=== PATIENT | male | born 1985 | race African-American/Black ===

== ENCOUNTER 2017-11-27 09:51 | Inpatient (IN) | payer OTHER ==
[~2017-11-27] VITALS: Ht 193 cm; Wt 164.2 kg
[~2017-11-27 09:51] MED LIST: ASPIR-LOW81 MG PO; AUGMENTIN PO; CARDIZEM CD120 MG PO; DIOVAN HCT 31 TABLE1 PO; FISH OIL 1,0001 EAC7 PO; GABAPENTIN400 MG PO; HYDROCHLOROTHIA25 MG PO; LISINOPRIL-HCT1 EAC3 PO; LOPRESSOR50 MG PO; NEURONTIN800 MG PO; NICOTINE PATCH1 EAC2 TD; OXYCODONE HCL10 MG PO; OXYMORPHONE HCL20 MG PO; PERCOCET 5/31 TABLET PO; VALSARTAN160 MG PO; ZESTORETIC 10-1 EAC1 PO; ZESTORETIC 20-1 EAC2 PO; ZESTRIL10 MG PO
[2017-11-27 10:13] LABS: BASOPHIL (%) 0.6 % (0-1); BASOPHIL COUNT 0.1 K/uL (0-0.1); EOSINOPHIL (%) 3.1 % (0-5); EOSINOPHIL COUNT 0.3 K/uL (0-0.3); HEMATOCRIT 42.8 % (38.0-50.0); HEMOGLOBIN 13.9 G/DL (12.5-16.6); IMMATURE GRANULOCYTE (%) 0.2 % (0.0-0.7); LYMPHOCYTE (%) 30.9 % (15-42); LYMPHOCYTE COUNT 2.7 K/uL (1.0-2.8); MCH 25.1 PG (29.0-34.0); MCHC 32.5 G/DL (30.0-36.0); MCV 77.4 FL (86-99); MONOCYTE (%) 4.6 % (3-12); MONOCYTE COUNT 0.4 K/uL (0-0.8); NEUTROPHIL (%) 60.6 % (45-76); NEUTROPHIL COUNT 5.3 K/uL (1.8-6.4); PLATELET COUNT 274 K/uL (156-360); RBC DIS.WIDTH-CV 15.8 % (11.8-14.6); RED BLOOD COUNT 5.53 M/uL (4.00-5.50); WHITE BLOOD COUNT 8.8 K/uL (4.1-10.2)
[2017-11-27 10:21] LABS: PTT 33.1 SEC (25-37)
[2017-11-27 10:34] LABS: CHLORIDE 104 mEq/L (99-109); POTASSIUM 3.8 mEq/L (3.7-5.4); SODIUM 138 mEq/L (136-147); TROP-I INTERPRETATION NEGATIVE
[2017-11-27 10:35] LABS: GLUCOSE 135 mg/dL (70-99)
[2017-11-27 10:39] LABS: CREATININE 0.7 mg/dL (0.6-1.3); GFR ESTIMATE (CALCULATED) > 59 mL/min/ (58.99-99999)
[2017-11-27 10:40] LABS: UREA NITROGEN (BUN) 11 mg/dL (9-23)
[2017-11-27] MEDS ORDERED: DILTIAZEM 24HR120 MG PO (13:04)
[2017-11-27] MEDS ORDERED: METOPROLOL TART50 MG PO (13:04)
[2017-11-27] MEDS ORDERED: VALSARTAN-HCTZ1 EAC3 PO (13:07)
[2017-11-27] MEDS ORDERED: GABAPENTIN400 MG PO (13:07)
[2017-11-27 16:34] LABS: TROP-I INTERPRETATION POSITIVE; TROPONIN-I 0.74 ng/mL (0.0-0.30)
[2017-11-27 17:02] LABS: INTER. NORMALIZED RATIO 1.1
[2017-11-27 17:05] LABS: PTT 33.1 SEC (25-37)
[2017-11-27 18:34] VITALS: BP 140/69
[2017-11-27 19:20] VITALS: BP 148/76
[2017-11-27 22:20] LABS: TROP-I INTERPRETATION POSITIVE; TROPONIN-I 0.62 ng/mL (0.0-0.30)
[2017-11-27 22:30] VITALS: BP 167/82
[2017-11-28 03:30] VITALS: BP 143/80
[2017-11-28 08:03] LABS: HEMATOCRIT 42.8 % (38.0-50.0); HEMOGLOBIN 13.3 G/DL (12.5-16.6); MCHC 31.1 G/DL (30.0-36.0); MCV 80.3 FL (86-99); PLATELET COUNT 274 K/uL (156-360); RBC DIS.WIDTH-CV 16.4 % (11.8-14.6); RBC DIS.WIDTH-SD 47.2 % (39-53); RED BLOOD COUNT 5.33 M/uL (4.00-5.50); WHITE BLOOD COUNT 10.2 K/uL (4.1-10.2)
[2017-11-28 08:08] LABS: CHLORIDE 105 MEQ/L (99-109); POTASSIUM 3.9 MEQ/L (3.7-5.4); SODIUM 139 MEQ/L (136-147)
[2017-11-28 08:14] LABS: CREATININE 0.4 MG/DL (0.6-1.3); GFR ESTIMATE (CALCULATED) > 59 mL/min/ (58.99-99999); GLUCOSE 108 mg/dL (70-99); UREA NITROGEN (BUN) 11 mg/dL (9-23)
[2017-11-28 08:34] LABS: TROP-I INTERPRETATION INDETERMINATE; TROPONIN-I 0.33 ng/mL (0.0-0.30)
[2017-11-28 09:00] VITALS: BP 161/102
[2017-11-28 11:48] VITALS: BP 164/95
[2017-11-28] MEDS ORDERED: METOPROLOL SUC100 MG PO (12:55)
[2017-11-28] MEDS ORDERED: XARELTO20 MG PO (12:55)
[2017-11-28] MEDS ORDERED: KLONOPIN0.5 M1 PO (14:59)
== END 2017-11-28 16:20 | disposition home or self-care (01) | DRG 281 ==
LOC: EME 09:51 → EDOF 11:54 → ENRESERV 11:57 → CANRESERV 11:57 → ENRESERV 12:41 → EDOF 16:42 → 4EAST 16:42 → EDOF 16:42 → 4EAST 18:31
PROVIDERS: Emergency Medicine; Internal Medicine
DX: I48.0 Paroxysmal atrial fibrillation (principal); I21.4 Non-ST elevation (NSTEMI) myocardial infarction; I47.1 Supraventricular tachycardia; E78.5 Hyperlipidemia, unspecified; G62.9 Polyneuropathy, unspecified; I10 Essential (primary) hypertension; G47.33 Obstructive sleep apnea (adult) (pediatric); E66.01 Morbid (severe) obesity due to excess calories; F41.9 Anxiety disorder, unspecified; F17.210 Nicotine dependence, cigarettes, uncomplicated; I25.2 Old myocardial infarction; Z91.19 Patient's noncompliance with other medical treatment and regimen; Z68.41 Body mass index [BMI] 40.0-44.9, adult
CPT/HCPCS: 71045; 80048; 84443; 84484; 85025; 85027; 85610; 85730; 93005; 93306; J7050

== ENCOUNTER 2018-02-05 23:09 | Inpatient (IN) | payer OTHER ==
[~2018-02-05] VITALS: Ht 193 cm; Wt 150.8 kg
[~2018-02-05 23:09] MED LIST changes: +DILTIAZEM 24HR120 MG PO; +KLONOPIN0.5 M1 PO; +METOPROLOL SUC100 MG PO; +METOPROLOL TART50 MG PO; +VALSARTAN-HCTZ1 EAC3 PO; +XARELTO20 MG PO
[2018-02-05 23:29] LABS: BASOPHIL (%) 0.5 % (0-1); BASOPHIL COUNT 0.1 K/uL (0-0.1); EOSINOPHIL COUNT 0.5 K/uL (0-0.3); HEMATOCRIT 44.9 % (38.0-50.0); HEMOGLOBIN 14.4 G/DL (12.5-16.6); IMMATURE GRANULOCYTE (%) 0.2 % (0.0-0.7); LYMPHOCYTE (%) 46.6 % (15-42); LYMPHOCYTE COUNT 5.2 K/uL (1.0-2.8); MCH 25.5 PG (29.0-34.0); MCHC 32.1 G/DL (30.0-36.0); MCV 79.5 FL (86-99); MONOCYTE (%) 7.4 % (3-12); MONOCYTE COUNT 0.8 K/uL (0-0.8); NEUTROPHIL (%) 41.3 % (45-76); NEUTROPHIL COUNT 4.6 K/uL (1.8-6.4); PLATELET COUNT 307 K/uL (156-360); RBC DIS.WIDTH-CV 15.9 % (11.8-14.6); RBC DIS.WIDTH-SD 45.4 % (39-53); RED BLOOD COUNT 5.65 M/uL (4.00-5.50); WHITE BLOOD COUNT 11.1 K/uL (4.1-10.2)
[2018-02-05 23:41] LABS: CHLORIDE 102 mEq/L (99-109); POTASSIUM 3.2 mEq/L (3.7-5.4); PTT 32.6 SEC (25-37); SODIUM 140 mEq/L (136-147)
[2018-02-05 23:42] LABS: MAGNESIUM 2.1 mg/dL (1.3-2.7)
[2018-02-05 23:43] LABS: GLUCOSE 98 mg/dL (70-99)
[2018-02-05 23:47] LABS: CREATININE 0.7 mg/dL (0.6-1.3); GFR ESTIMATE (CALCULATED) > 59 mL/min/ (58.99-99999)
[2018-02-05 23:48] LABS: UREA NITROGEN (BUN) 8 mg/dL (9-23)
[2018-02-05 23:52] LABS: TROP-I INTERPRETATION NEGATIVE; TROPONIN-I < 0.01 ng/mL (0.0-0.30)
[2018-02-06] VITALS (14 sets, daily range): BP systolic 97–165; BP diastolic 55–119
[2018-02-06 01:11] LABS: AMPHETAMINE NEGATIVE (500 ng/mL); BARBITURATES NEGATIVE (200 ng/mL); BENZODIAZEPINES NEGATIVE (150 ng/mL); BUPRENORPHINE NEGATIVE (10 ng/mL); COCAINE PRESUMPTIVE POSITIVE (150 ng/mL); METHADONE NEGATIVE (200 ng/mL); METHAMPHETAMINE NEGATIVE (500 ng/mL); OPIATES (MORPHINE) NEGATIVE (100 ng/mL); OXYCODONE NEGATIVE (100 ng/mL); PHENCYCLIDINE NEGATIVE (25 ng/mL); PROPOXYPHENE NEGATIVE (300 ng/mL); THC CANNABINOIDS PRESUMPTIVE POSITIVE (50 ng/mL); TRICYCLIC ANTIDEPRESSANTS NEGATIVE (300 ng/mL)
[2018-02-06] MEDS ORDERED: METOPROLOL TART50 MG PO (01:12)
[2018-02-06 06:19] LABS: BASOPHIL (%) 0.5 % (0-1); EOSINOPHIL COUNT 0.3 K/uL (0-0.3); HEMATOCRIT 39.9 % (38.0-50.0); HEMOGLOBIN 12.5 G/DL (12.5-16.6); IMMATURE GRANULOCYTE (%) 0.2 % (0.0-0.7); LYMPHOCYTE (%) 36.2 % (15-42); LYMPHOCYTE COUNT 3.2 K/uL (1.0-2.8); MCH 25.6 PG (29.0-34.0); MCHC 31.3 G/DL (30.0-36.0); MCV 81.6 FL (86-99); MONOCYTE (%) 4.9 % (3-12); MONOCYTE COUNT 0.4 K/uL (0-0.8); NEUTROPHIL (%) 55.2 % (45-76); NEUTROPHIL COUNT 4.9 K/uL (1.8-6.4); PLATELET COUNT 238 K/uL (156-360); RBC DIS.WIDTH-CV 15.9 % (11.8-14.6); RBC DIS.WIDTH-SD 46.9 % (39-53); RED BLOOD COUNT 4.89 M/uL (4.00-5.50); WHITE BLOOD COUNT 8.8 K/uL (4.1-10.2)
[2018-02-06 06:30] LABS: TROP-I INTERPRETATION NEGATIVE; TROPONIN-I 0.06 ng/mL (0.0-0.30)
[2018-02-06 07:29] LABS: CHLORIDE 107 MEQ/L (99-109); CREATININE 0.5 MG/DL (0.6-1.3); GFR ESTIMATE (CALCULATED) > 59 mL/min/ (58.99-99999); MAGNESIUM 1.7 mg/dl (1.3-2.7); PHOSPHORUS 2.9 mg/dL (2.5-4.9); SODIUM 139 MEQ/L (136-147); UREA NITROGEN (BUN) 8 mg/dL (9-23)
[2018-02-06 07:30] LABS: GLUCOSE 152 mg/dL (70-99); POTASSIUM 4.2 MEQ/L (3.7-5.4)
[2018-02-06] MEDS ORDERED: XARELTO20 MG PO (11:56)
== END 2018-02-06 18:50 | disposition home or self-care (01) | DRG 310 ==
LOC: EME → EDBD 23:09 → EME 23:09 → EDOF 02-06 02:37 → ENRESERV 02-06 02:38 → 4WEST 02-06 03:28
PROVIDERS: Emergency Medicine; Specialist
DX: I48.0 Paroxysmal atrial fibrillation (principal); E87.6 Hypokalemia; I10 Essential (primary) hypertension; G62.9 Polyneuropathy, unspecified; G47.33 Obstructive sleep apnea (adult) (pediatric); F12.90 Cannabis use, unspecified, uncomplicated; E66.01 Morbid (severe) obesity due to excess calories; E78.5 Hyperlipidemia, unspecified; F14.90 Cocaine use, unspecified, uncomplicated; Z91.19 Patient's noncompliance with other medical treatment and regimen
CPT/HCPCS: 71045; 80048; 83735; 84100; 84484; 84999; 85025; 85610; 85730; 87641; 93005; 99281; 99285; J3010; J3480; J7030; J7040; J7120